=== PATIENT | female | born 1985 | race Two or more races ===

== ENCOUNTER 2022-07-19 19:20 | Emergency (ER) | payer OTHER ==
[~2022-07-19] VITALS: Ht 175.3 cm; Wt 73.9 kg
[2022-07-19] MEDS ORDERED: CHILDREN'S ASPI81 MG PO (19:46)
[2022-07-19] MEDS ORDERED: PRENA1 CHEW TA1.4 MG PO (19:46)
[2022-07-19] MEDS ORDERED: ZITHROMAX500 MG PO (22:06)
== END 2022-07-19 22:11 | disposition home or self-care (01) ==
LOC: ER 19:20
DX: Z33.1 Pregnant state, incidental (principal); Z20.822 Contact with and (suspected) exposure to COVID-19

== ENCOUNTER 2022-12-22 06:16 | Inpatient (IN) | payer OTHER ==
[~2022-12-22] VITALS: Ht 175.3 cm; Wt 85.3 kg
[~2022-12-22 06:16] MED LIST: CHILDREN'S ASPI81 MG PO; PRENA1 CHEW TA1.4 MG PO; ZITHROMAX500 MG PO
== END 2022-12-25 12:13 | disposition home or self-care (01) | DRG 807 ==
LOC: LDR 06:16 → OB/GYN 12-23 11:30
PROVIDERS: ADMIT Obstetrics & Gynecology; ATTEND Obstetrics & Gynecology
PROC: 3E0P7VZ Introduction of Hormone into Female Reproductive, Via Natural or Artificial Opening (ICD-10-PCS; 2022-12-22)
PROC: 4A1HXCZ Monitoring of Products of Conception, Cardiac Rate, External Approach (ICD-10-PCS; 2022-12-22)
PROC: 10E0XZZ Delivery of Products of Conception, External Approach (ICD-10-PCS; principal; 2022-12-23)
PROC: 0W8NXZZ Division of Female Perineum, External Approach (ICD-10-PCS; 2022-12-23)
PROC: 3E033VJ Introduction of Other Hormone into Peripheral Vein, Percutaneous Approach (ICD-10-PCS; 2022-12-23)
DX: O80 Encounter for full-term uncomplicated delivery (principal); Z37.0 Single live birth; Z3A.39 39 weeks gestation of pregnancy; Z20.822 Contact with and (suspected) exposure to COVID-19